=== PATIENT | female | born 1985 | race Two or more races ===

== ENCOUNTER 2021-07-02 11:02 | Outpatient (CLI) | payer OTHER | END 2021-07-02 12:00 | disposition home or self-care (01) | LOC: PRENATAL 11:02 | PROVIDERS: ATTEND Obstetrics & Gynecology Maternal & Fetal Medicine | DX: Z36.89 Encounter for other specified antenatal screening (principal); O36.80X1 Pregnancy with inconclusive fetal viability, fetus 1; Z3A.12 12 weeks gestation of pregnancy ==

== ENCOUNTER 2021-08-28 12:39 | Emergency (ER) | payer OTHER ==
[~2021-08-28] VITALS: Ht 154.9 cm; Wt 61.7 kg
== END 2021-08-28 15:32 | disposition home or self-care (01) ==
LOC: ER 12:39
DX: O26.892 Other specified pregnancy related conditions, second trimester (principal); Z3A.22 22 weeks gestation of pregnancy; R42 Dizziness and giddiness

== ENCOUNTER 2021-09-03 14:40 | Outpatient (CLI) | payer OTHER | END 2021-09-03 15:35 | disposition home or self-care (01) | LOC: PRENATAL 14:40 | PROVIDERS: ATTEND Obstetrics & Gynecology Maternal & Fetal Medicine | DX: O35.3XX0 Maternal care for (suspected) damage to fetus from viral disease in mother, not applicable or unspecified (principal) ==

== ENCOUNTER 2022-01-09 17:21 | Inpatient (IN) | payer OTHER ==
[~2022-01-09] VITALS: Ht 286.3 cm; Wt 3.2 kg
[2022-01-09] MEDS ORDERED: DIALYVITE 800-1 EACH (18:01)
[2022-01-09] MEDS ORDERED: PRENATAL TABLE1 EAC3 (18:02)
[2022-01-13] MEDS ORDERED: IBUPROFEN800 MG PO (17:09)
[2022-01-13] MEDS ORDERED: SIMETHICONE80 MG PO (17:09)
[2022-01-13] MEDS ORDERED: COLACE100 MG PO (17:09)
[2022-01-13] MEDS ORDERED: PERCOCET 5-3251 EACH PO (17:09)
== END 2022-01-13 17:40 | disposition home or self-care (01) | DRG 788 ==
LOC: LDR 17:21 → OB/GYN 17:21
PROVIDERS: ADMIT Student in an Organized Health Care Education/Training Program; ATTEND Student in an Organized Health Care Education/Training Program
PROC: 4A1HXCZ Monitoring of Products of Conception, Cardiac Rate, External Approach (ICD-10-PCS; 2022-01-09)
PROC: 10D00Z1 Extraction of Products of Conception, Low, Open Approach (ICD-10-PCS; principal; 2022-01-10 19:00)
DX: O62.1 Secondary uterine inertia (principal); Z3A.39 39 weeks gestation of pregnancy; Z37.0 Single live birth; Z20.822 Contact with and (suspected) exposure to COVID-19